=== PATIENT | female | born 1995 | race Two or more races ===

== ENCOUNTER 2021-04-21 08:01 | Outpatient (REF) | payer OTHER, SELFPAY | END 2021-04-21 08:02 | disposition home or self-care (01) | LOC: HO.LAB 08:01 | PROVIDERS: PCP Internal Medicine; Visit Provider Internal Medicine | DX: Z20.822 Contact with and (suspected) exposure to COVID-19 (principal) | CPT/HCPCS: C9803; U0003; U0005 ==